=== PATIENT | male | born 1970 | race African-American/Black ===

== ENCOUNTER 2023-05-30 17:01 | Emergency (ER) | payer MEDICAID, SELFPAY ==
[2023-05-30 17:04] VITALS: BP 162/100; PULSE 76; TEMP 36.7; O2SAT 99; BMI 28.6
--- NOTE | 2023-05-30 17:14 | ED_ITS ---
HPI - Dental/Oral General Chief complaint: Dental/Oral Stated complaint: DENTAL PAIN Time Seen by Provider: 05/30/23 17:02 Source: patient Mode of arrival: walk-in History of Present Illness HPI Narrative: 53-year-old male presents to the emergency department for toothache. He is complaining pain which is severe and throbbing to the right lower jaw. He is visiting here from [place]. No fever or difficulty breathing or swallowing. Related Data Previous Rx's Medication Instructions Recorded acetaminophen 300 mg-codeine 30 mg 1 tab PO Q6H PRN pain #20 tabs 05/30/23 tablet ibuprofen 800 mg tablet 800 mg PO Q8H PRN pain #20 tabs 05/30/23 penicillin V potassium 250 mg 250 mg PO QID 10 days #40 tabs 05/30/23 tablet Allergies Allergy/AdvReac Type Severity Reaction Status Date / Time No Known Drug Allergies Allergy Verified 05/30/23 17:06 Review of Systems ROS Narrative A ten point review of systems is negative except as noted above. Exam Narrative Exam Narrative: Nurses note and vital signs reviewed and patient is not hypoxic. General: The patient appears well and in no apparent distress. Patient is resting comfortably on cart. Skin: Warm, dry, no pallor noted. There is no rash noted. Head: Normocephalic, atraumatic Eye: Normal conjunctiva, no drainage Ears, Nose, Mouth, and Throat: oral mucosa is moist. Nares patent. Mouth without vesicles. dental caries is noted in the right lower dentition. No bleeding or pus present. No gingival swelling or erythema and no facial swelling or gurinder thema. No swelling to the floor of his mouth. Cardiovascular: Regular Rate and Rhythm Respiratory: Patient is in no distress, no accessory muscle use Back: non-tender GI: nontender Musculoskeletal: The patient has no evidence of calf tenderness, no pitting edema, symmetrical pulses noted bilaterally Neurological: A&O, normal speech Psychiatric: Cooperative Constitutional Vital Signs, click to edit/add: Last Vital Signs Temp 98.1 F 05/30/23 17:04 Pulse 76 05/30/23 17:04 BP 162/100 H 05/30/23 17:04 Pulse Ox 99 05/30/23 17:04 O2 Del Method Room Air 05/30/23 17:04 Course Vital Signs Vital signs: Vital Signs Temperature 98.1 F 05/30/23 17:04 Pulse Rate 76 05/30/23 17:04 Blood Pressure 162/100 H 05/30/23 17:04 Pulse Oximetry 99 05/30/23 17:04 Oxygen Delivery Method Room Air 05/30/23 17:04 Temperature 98.1 F 05/30/23 17:04 Pulse Rate 76 05/30/23 17:04 Blood Pressure 162/100 H 05/30/23 17:04 Pulse Oximetry 99 05/30/23 17:04 Oxygen Delivery Method Room Air 05/30/23 17:04 MDM - Dental/Oral MDM Narrative Medical decision making narrative: he is provided pain medication and antibiotic and he'll follow-up with dentistry. Follow-up were discussed with the patient Differential Diagnosis Differential diagnosis: Likely gingival abscess, dental caries, toothache, dental abscess and fracture of tooth Discharge Plan Discharge Chief Complaint: Dental/Oral Clinical Impression: Dental caries, Toothache Patient Disposition: Home, Self-Care Time of Disposition Decision: 17:10 Condition: Good Mode of Transportation: Private Vehicle Prescriptions / Home Meds: New acetaminophen-codeine 300-30 mg tablet 1 tab PO Q6H PRN (Reason: pain) Qty: 20 0RF ibuprofen 800 mg tablet 800 mg PO Q8H PRN (Reason: pain) Qty: 20 0RF penicillin V potassium 250 mg tablet 250 mg PO QID 10 Days Qty: 40 0RF Instructions: Toothache (ED) Additional Instructions: follow up with dentistry Stand Alone Forms: Portal Instructions
[2023-05-30] MEDS: KETOROLAC TROMETHAMINE 60 MG/2 ML VIAL IM (17:25)
[2023-05-30 17:39] VITALS: BP 144/90; PULSE 67; RESP 16; O2SAT 97
== END 2023-05-30 17:47 | disposition home or self-care (01) ==
PROVIDERS: Emergency Provider Emergency Medicine
DX: K02.9 Dental caries, unspecified (principal); K08.89 Other specified disorders of teeth and supporting structures
CPT/HCPCS: 96372; 99284